=== PATIENT | female | born 1985 | race Caucasian/White ===

== ENCOUNTER 2021-06-09 15:35 | Emergency (ER) | payer SELFPAY ==
[~2021-06-09] VITALS: Ht 152.4 cm; Wt 132.0 kg
--- NOTE | 2021-06-09 16:29 | PHYS DOC ---
Past History Additional Past Medical Histor: Miscarraige 05/09/2021, psoriasis Past Surgical History: Cholecystectomy, Tonsillectomy Smoking: Non-smoker Alcohol Use: Occasionally Drug Use: None General Adult EDM: Chief Complaint: SHORTNESS OF BREATH Problems: (1) Shortness of breath HPI: HPI: Patient is a 35 year old female with a history of anxiety who presents with shortness of breath for the past 2-1/2 hours. Patient states she was relaxing on the couch when she began to feel "pressure on her chest" and that she "could not catch her breath." Patient denies pain currently. She reports associated diaphoresis and dizziness. Patient states that initially, it felt similar to prior anxiety attacks, but her symptoms persisted after breathing exercises. She flew in to the area 3 days ago from [place], [place] to visit her boyfriend. Patient denies lower extremity pain, swelling, erythema. Patient had a miscarri age last month. She reports she had symptomatic COVID19 illness in late January/early February, without residual symptoms. Patient denies history of tobacco use, current control use, and history of clots. Review of Systems: Review of Systems: Constitutional: Denies fever or chills HEENT: Denies vision changes, discharge from eyes, nasal congestion, epistaxis Respiratory: See HPI Cardiovascular: See HPI GI: Denies abdominal pain, nausea, vomiting, bloody stools or diarrhea : Reports miscarriage last month, denies dysuria or hematuria Musculoskeletal: See HPI Integument: Reports diaphoresis, denies rash or other lesions Neurologic: Denies headache, focal weakness or sensory changes Psychiatric: Reports anxiety, denies depression Allergies: Allergies: Allergies Coded Allergies Type Severity Reaction Last Updated Verified No Known Drug Allergies 06/09/21 No Physical Exam: PE: Constitutional: Obese, no acute distress, non-toxic appearance. [] HENT: Normocephalic, atraumatic, bilateral external ears normal, nose normal. [] Eyes: Conjunctiva normal, no discharge. [] Cardiovascular:Heart rate regular rhythm, no murmur [] Lungs & Thorax: Bilateral breath sounds clear to auscultation [] Skin: Warm, dry, no erythema, no rash. [] Extremities: No tenderness, no cyanosis, no clubbing, ROM intact, no edema. [] Psychologic: Affect normal, judgement normal, mood normal. [] Current Patient Data: Labs: Laboratory Tests Test 06/09/21 16:21 06/09/21 16:45 Bedside Urine HCG, Qualitative hcg negative White Blood Count 7.5 x10^3/uL Red Blood Count 4.52 x10^6/uL Hemoglobin 15.0 g/dL Hematocrit 43.8 % Mean Corpuscular Volume 97 fL Mean Corpuscular Hemoglobin 33 pg Mean Corpuscular Hemoglobin Concent 34 g/dL Red Cell Distribution Width 12.9 % Platelet Count 267 x10^3/uL Neutrophils (%) (Auto) 61 % Lymphocytes (%) (Auto) 25 % Monocytes (%) (Auto) 11 % Eosinophils (%) (Auto) 3 % Basophils (%) (Auto) 1 % Neutrophils # (Auto) 4.6 x10^3uL Lymphocytes # (Auto) 1.9 x10^3/uL Monocytes # (Auto) 0.8 x10^3/uL Eosinophils # (Auto) 0.2 x10^3/uL Basophils # (Auto) 0.0 x10^3/uL D-Dimer (Nika) 0.28 mg/L Sodium Level 142 mmol/L Potassium Level 4.4 mmol/L Chloride Level 105 mmol/L Carbon Dioxide Level 29 mmol/L Anion Gap 8 Blood Urea Nitrogen 14 mg/dL Creatinine 0.8 mg/dL Estimated GFR (Cockcroft-Gault) 80.7 Glucose Level 99 mg/dL Calcium Level 9.4 mg/dL Vital Signs: Vital Signs Date Time Temp Pulse Resp B/P (MAP) Pulse Ox O2 Delivery O2 Flow Rate FiO2 06/09/21 15:51 98.3 77 22 159/84 97 Room Air EKG: EKG: EKG interpreted by Dr. Carlton: regular rate and rhythm with no ectopic beats. No concerning ST-T wave changes. Regular QR interval. Radiology/Procedures: Radiology/Procedures: [] Heart Score: C/O Chest Pain: N/A Course & Med Decision Making: Course & Med Decision Making Pertinent Labs and Imaging studies reviewed. (See chart for details) Due to patient's recent travel, obesity, history of recent miscarriage PE will be ruled out. WELLS score is 0. No PERC criteria met. D-dimer ordered to r/o PE. On reevaluation, patient is resting comfortably in bed. She states she is feeling improved, however still slightly short of breath. Patient states she normally takes bupropion, but has not had any for about a week. Short-term anxiolytics were discussed with the patient, which she declined. Karyna Disclaimer: Karyna Disclaimer: This electronic medical record was generated, in whole or in part, using a voice recognition dictation system. Departure Departure: Disposition: HOME / SELF CARE / HOMELESS Condition: STABLE Referrals: NON,STAFF (PCP) Patient Instructions: Anxiety and Panic Attacks, [id number], Shortness of Breath, [id number] Additional Instructions: Return to the emergency department for worsening of symptoms, or if chest pain returns and persists. EDENILSON POPE Jun 09, 2021 16:29
[2021-06-09 17:16] LABS: BASO % 1 % (0-3); EOS # 0.2 x10^3/uL (0.0-0.7); EOS % 3 % (0-3); HEMATOCRIT 43.8 % (36.0-47.0); LYMPH # 1.9 x10^3/uL (1.0-4.8); LYMPH % 25 % (24-48); MEAN CORPUSCULAR HEMOGLOBIN 33 pg (25-35); MEAN CORPUSCULAR HGB CONC 34 g/dL (31-37); MEAN CORPUSCULAR VOLUME 97 fL (79-100); MONO # 0.8 x10^3/uL (0.0-1.1); MONO % 11 % (0-9); NEUT # 4.6 x10^3uL (1.8-7.7); NEUT % 61 % (31-73); PLATELET COUNT 267 x10^3/uL (140-400); RED BLOOD COUNT 4.52 x10^6/uL (3.50-5.40); RED CELL DISTRIBUTION WIDTH 12.9 % (11.5-14.5); WHITE BLOOD COUNT 7.5 x10^3/uL (4.0-11.0)
[2021-06-09 17:25] LABS: CALCIUM 9.4 mg/dL (8.5-10.1); CREATININE 0.8 mg/dL (0.6-1.0); GFR 80.7; POTASSIUM 4.4 mmol/L (3.5-5.1)
--- NOTE | 2021-06-09 17:44 | EKG ---
[address] [address] Test Date: 2021-06-09 Test Time: 15:56:44 Pat Name: JACKSON MCGILL Department: Room: Gender: F Laundry Clerk: JOCELINE : 1985 Requested By: EDENILSON POPE Order Number: [id number] Reading MD: Zoran Veloz MD Measurements Intervals Carmine Rate: 63 P: 45 IA: 134 QRS: 26 QRSD: 82 T: 11 QT: 402 QTc: 414 Interpretive Statements SINUS RHYTHM Electronically Signed On 06-12-2021 9:31:09 CDT by Zoran Veloz MD
[2021-06-09 18:10] VITALS: BP 159/86
== END 2021-06-09 18:20 | disposition home or self-care (01) ==
LOC: ER 15:35
DX: R06.02 Shortness of breath (principal); R42 Dizziness and giddiness; F41.9 Anxiety disorder, unspecified; Z90.49 Acquired absence of other specified parts of digestive tract
CPT/HCPCS: 36415; 80048; 81025; 85025; 85379; 93005; 99285-25